=== PATIENT | female | born 1970 | race Caucasian/White ===

== ENCOUNTER 2017-11-25 21:57 | Inpatient (IN) ==
[2017-11-25 23:55] LABS: Basophils # 0.1 10*3/uL (0.0-0.2); Basophils % 1.1 % (0.0-0.8); Eosinophils # 0.2 10*3/uL (0.0-0.87); Eosinophils % 1.9 % (0.00-10.9); Hematocrit 48.2 VOL% (35.7-47.0); Hemoglobin 16.4 GM/DL (12.0-16.0); Immature Granulocytes % 0.2 %; Immature Granulocytes Absolute 0.02 #; Lymphocytes # 2.8 10*3/uL (1.4-4.0); Mean Corpuscular Hemoglobin 32 PG (27-34); Mean Platelet Volume 9.8 FL (9.6-12.0); Monocytes # 0.5 10*3/uL (0.11-0.8); Monocytes % 5.3 % (1.7-12.7); Neutrophils # 5.5 10*3/uL (1.4-7.4); Neutrophils % 60.5 % (38.7-73.9); Platelet Count 255 T/CUMM (130-400); Red Blood Count 5.13 MC/CUMM (3.8-5.5); Red Cell Distribution Width 14.6 % (9.3-17.3); White Blood Count 9.1 T/CUMM (4-12)
[2017-11-26 00:03] LABS: INR 1.1; PT Patient Result 11.3 SECS
[2017-11-26 00:15] LABS: Alanine Aminotransferase 16 U/L (13-56); Albumin 3.7 G/DL (3.4-5.0); Alkaline Phosphatase 137 U/L (45-117); Aspartate Amino Transferase 14 U/L (0-37); Bilirubin,Total < 0.39 MG/DL (0.2-1.0); Blood Urea Nitrogen 12 MG/DL (7-18); Calcium 9.1 MG/DL (8.5-10.1); Glucose 98 MG/DL (74-106); Osmolality,Calculated 280.3 MOS/KG (273-304); Potassium 3.8 MMOL/L (3.5-5.1); Sodium 141 MMOL/L (136-145); Total Protein 7.2 G/DL (6.4-8.3)
[2017-11-26 02:43] LABS: Apearance,Urine CLEAR (Clear); Bilirubin,Urine Negative (Negative); Blood, Urine Moderate mg/dL (Negative); Glucose,Urine (UA) Negative (Negative); Hyaline Casts,Urine 1 /LPF (0-3); Ketones,Urine Negative (Negative); Nitrite,Urine Negative (Negative); Protein,Urine Negative; RBC,Urine 1 /HPF (0-4); Urine Color Straw (Yellow); Urine Specific Gravity 1.004 (1.001-1.035); Urine Urobilinogen < 2.0 EU/DL (0.2-1.0); WBC,Urine <1 /HPF (0-6)
[2017-11-27 11:56] VITALS: BP 111/70
== END 2017-11-27 12:08 | disposition home or self-care (01) | DRG 494 ==
LOC: N.ED 21:57 → N.EDINP 23:09 → N.3E 11-26 00:10
PROVIDERS: ADMIT Orthopaedic Surgery; ATTEND Orthopaedic Surgery